=== PATIENT | male | born 1975 ===

== ENCOUNTER 2017-11-25 15:14 | Emergency (ER) | payer SELFPAY ==
[2017-11-25 15:29] VITALS: TEMP 97.4
[2017-11-25 17:02] LABS: BASO % 0.4 % (0.0-2.0); EOS # 0.1 K/uL (0.0-0.7); EOS % 0.6 % (0.0-4.0); HEMOGLOBIN 14.7 g/dL (12.0-18.0); LYMPH # 1.4 K/uL (1.0-4.3); LYMPH % 16.2 % (20.0-40.0); MEAN CELL VOLUME 86.4 fL (80.0-94.0); MEAN CORPUSCULAR HEMOGLOBIN 29.8 pg (27.0-31.0); MEAN CORPUSCULAR HGB CONC 34.5 g/dL (33.0-37.0); MEAN PLATELET VOLUME 8.9 fL (7.2-11.7); MONO # 0.5 K/uL (0.0-0.8); MONO % 5.6 % (0.0-10.0); NEUT # 6.5 K/uL (1.8-7.0); NEUT % 77.2 % (50.0-75.0); NRBC % 0.1 % (0.0-2.0); RBC 4.94 Mil/uL (4.40-5.90); RED CELL DISTRIBUTION WIDTH 13.5 % (11.5-14.5); WHITE BLOOD COUNT 8.5 K/uL (4.8-10.8)
[2017-11-25 17:09] LABS: INR 1.1
--- NOTE | 2017-11-25 17:09 | C.PDOC ---
History Of Present Illness 42 year old male presents to the emergency department with complaints of chest pain associated with nausea that began this morning. Patient describes the pain as intermittent, pressure-like, and locates the pain to be in his mid sternal area radiating to his epigastric area. Patient denies any shortness of breath, cough, fever, palpitations. He reports he does not have any PMHx of hypertension , diabetes, hyperlipidemia or FMhx of cardiac disease and smoking. Time Seen by Provider: 11/25/17 16:37 Chief Complaint (Nursing): Chest Pain History Per: Patient History/Exam Limitations: no limitations Onset/Duration Of Symptoms: Hrs, Days Current Symptoms Are (Timing): Still Present Severity: Moderate Quality: Pressure Recent travel outside of the [place]: No Additional History Per: Patient Past Medical History Reviewed: Historical Data, Nursing Documentation, Vital Signs Vital Signs: Last Vital Signs Temp 97.4 F L 11/25/17 15:27 Pulse 94 H 11/25/17 18:20 Resp 16 11/25/17 18:20 BP 127/83 11/25/17 18:20 Pulse Ox 98 11/25/17 18:20 - Medical History PMH: No Chronic Diseases Surgical History: No Surg Hx Family History: States: No Known Family Hx - Social History Hx Alcohol Use: Yes Hx Substance Use: No (FORMER) - Immunization History Hx Tetanus Toxoid Vaccination: No Hx Influenza Vaccination: No Hx Pneumococcal Vaccination: No Review Of Systems Constitutional: Negative for: Fever, Chills, Sweats Cardiovascular: Positive for: Chest Pain. Negative for: Palpitations Respiratory: Negative for: Cough Gastrointestinal: Positive for: Nausea. Negative for: Vomiting, Abdominal Pain , Diarrhea Physical Exam - Physical Exam Appears: Well, Non-toxic, No Acute Distress, Other (Anxious) Skin: Normal Color, Warm, Dry Head: Normacephalic Eye(s): bilateral: Normal Inspection Oral Mucosa: Moist Chest: No Tenderness Cardiovascular: Rhythm Regular Respiratory: Normal Breath Sounds, No Rales, No Wheezing Gastrointestinal/Abdominal: Normal Exam, Bowel Sounds, Soft, No Tenderness Extremity: Normal ROM, No Pedal Edema, No Calf Tenderness Neurological/Psych: Oriented x3 Gait: Steady ED Course And Treatment - Laboratory Results Result Diagrams: 11/25/17 16:54 11/25/17 16:54 ECG: Interpreted By Me, Viewed By Me ECG Rhythm: Sinus Rhythm ECG Interpretation: Normal (Normal axis, no acute ST/T) Rate From EC (bpm) O2 Sat by Pulse Oximetry: 97 (RA) Pulse Ox Interpretation: Normal - Other Rad CXR X-Ray: Viewed By Me, Read By Radiologist Interpretation: Accession No. : [id number]. Patient Name / ID : SHELBI BROOKE / [id number]. Exam Date : 11/25/2017 17:00:05 ( Approved ). Study Comment : Sex / Age : M / 42Y. Creator : Olivier Bruce MD. Dictator : Olivier Bruce MD. Site Superintendent : Flour Blender : Olivier Bruce MD. Approver2 : Report Date : 11/25/2017 17:36:51. My Comment : . PROCEDURE: CHEST RADIOGRAPH, 1 VIEW. HISTORY: Chest pain. COMPARISON: None available. FINDINGS: LUNGS: Clear. PLEURA: No pneumothorax or pleural fluid seen. CARDIOVASCULAR: No radiographic findings to suggest acute or significant cardiovascular disease. OSSEOUS STRUCTURES: No significant abnormalities. VISUALIZED UPPER ABDOMEN: Normal. OTHER FINDINGS: None. IMPRESSION: No active disease. Progress Note: Blood work, CXR, UA, Upreg, EKG ordered and reviewed. Patient given IV Protonix. 6:45pm- Ddimer apparently cancelled by lab. Redrawn by nurse and sent. Disposition - Disposition Disposition Time: 19:00 Condition: STABLE Forms: [facility] (Slovak) - Clinical Impression Clinical Impression: Chest pain - Scribe Statement The provider has reviewed the documentation as recorded by the Scribe (Kathryn Lara) Provider Attestation: All medical record entries made by the Scribe were at my direction and personally dictated by me. I have reviewed the chart and agree that the record accurately reflects my personal performance of the history, physical exam, medical decision making, and the department course for this patient. I have also personally directed, reviewed, and agree with the discharge instructions and disposition. Physician Patient Turnover Patient Signed Over To: Javier Osborne Handoff Comments: pending d-dimer, reassessment
[2017-11-25 17:15] LABS: ALB/GLOB RATIO 1.1 (1.0-2.1); ALBUMIN 4.5 g/dL (3.5-5.0); ALT/SGPT 138 U/L (21-72); AST/SGOT 190 U/L (17-59); BLOOD UREA NITROGEN 19 mg/dL (9-20); CALCIUM 9.2 mg/dl (8.6-10.4); GFR AFRICAN-AMERICAN > 60; GFR NON-AFRICAN AMERICAN > 60; LIPASE 68 U/L (23-300)
[2017-11-25 17:33] LABS: B-TYPE NATRIURETIC PEPTIDE < 11.1 pg/mL (0-450); CK-MB 0.96 ng/mL (0.0-3.38)
[2017-11-25 17:36] LABS: URINE BILIRUBIN NEGATIVE (NEGATIVE); URINE BLOOD NEGATIVE (NEGATIVE); URINE CLARITY Clear (Clear); URINE COLOR Yellow (YELLOW); URINE GLUCOSE (UA) NORMAL (Normal); URINE LEUKOCYTE ESTERASE NEG Leu/uL (Negative); URINE PROTEIN NEGATIVE (NEGATIVE)
--- NOTE | 2017-11-25 17:38 | RAD ---
PROCEDURE: CHEST RADIOGRAPH, 1 VIEW HISTORY: Chest pain COMPARISON: None available. FINDINGS: LUNGS: Clear. PLEURA: No pneumothorax or pleural fluid seen. CARDIOVASCULAR: No radiographic findings to suggest acute or significant cardiovascular disease. OSSEOUS STRUCTURES: No significant abnormalities. VISUALIZED UPPER ABDOMEN: Normal. OTHER FINDINGS: None. IMPRESSION: No active disease.
[2017-11-25 18:15] LABS: BARBITURATES, UR NEGATIVE (NEGATIVE); BENZODIAZEPINES, UR NEGATIVE (NEGATIVE); OPIATES, UR NEGATIVE (NEGATIVE); PHENCYCLIDINE, UR NEGATIVE (NEGATIVE)
[2017-11-25 18:21] VITALS: BP 127/83; PULSE 94; RESP 16
[2017-11-25 18:52] VITALS: O2SAT 97
== END 2017-11-25 19:45 | disposition home or self-care (01) ==
LOC: C.ER 15:14
DX: R07.9 Chest pain, unspecified (principal); K21.9 Gastro-esophageal reflux disease without esophagitis
CPT/HCPCS: 71045; 80053; 81001; 82550; 82553; 83690; 83880; 84484; 85025; 85378; 85610; 85730; 96374; 99285; C9113; G0480